=== PATIENT | male | born 1945 | race Caucasian/White ===

== ENCOUNTER 2016-11-02 16:50 | Emergency (ER) | payer MEDICARE ==
[~2016-11-02] VITALS: Ht 175.3 cm; Wt 81.6 kg
[2016-11-02 17:38] LABS: URINE BILIRUBIN - DIPSTICK NEGATIVE (NEG); URINE BLOOD TRACE (NEG)
--- NOTE | 2016-11-02 17:44 | Urgent Treatment Center Report ---
History of Present Issue Date/Time Seen by Provider 11/02/16 1733 Visit Reason Pt arrived:Walked Presenting Problem:PT STATES HIS URINE HAS BEEN DARK YELLOW IN COLOR FOR OVER A WEEK AND HE BELIEVES HE HAS A UTI. STATES BURNING WITH URINATION AT TIMES Location if Accident: Onset of symptoms date/time:/ or onset unknown for:MEDICAL HX UNKNOWN Have you (or family members/close friends) recently traveled outside the [place]? N If Yes, where/when: Have you had exposure to infectious disease within the past month? TB? Other? Specify: Patient state that he noticed that his urine looked dark earlier. States that he has noticed that at times over the last week she noticed that his urine looks dark yellow at ties. State that he thinks he has a kidney infection state that he is not having pain with urination or difficulty starting to urinate just at times has a burning sensation. ALLERGIES Coded Allergies: No Known Allergies (11/02/16) History Medical History General CAD? No Angina: No CO: Yes Hypertension? No Hyperlipidemia? No CHF? No DVT? No PE? No COPD? No Asthma? No Anemia? No GERD? No Gastric ulcers? No GI Bleed? No Hernia? No Thyroid Problems? No Hypothyroidism? No CVA? No Seizures? No Diabetes? No Renal Insuffiency? No UTI? No Stones? No BPH? No GB Disease: No Nephritic Syndrome? No Asplenia? No Hepatitis? No Sickle Cell Disease? No Arthritis? No Migraines? No Cataracts? No Glaucoma? No MRSA? No HIV? No TB? No Anxiety? No Depression? No Cancer? 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 Physical Exam Vital Signs Vital Signs Date Time Temp Pulse Resp B/P Pulse O2 O2 Flow FiO2 Ox Delivery Rate 11/02 1722 98.8 64 16 156/47 98 General Appearance normal appearance, WD/WN, no apparent distress Respiratory Status Yes: trachea midline, chest symmetrical, non tender chest. No: respiratory distress. Cardiovascular normal exam Neurologic alert, weigher production II-XII nml as tested, normal exam, no motor/sensory deficits, oriented x 3 Comments Patient denies urgency or frequency states that he was worried because he thought his urine looked a different color than usual denies cva tenderness Medical Decision Making LABS/Meds/Orders Pt receiving controlled substance in ED? No Results/Orders Laboratory Tests 11/02/16 1726: Urine Color YELLOW, Urine Appearance Clear, Urine pH 5.5, Ur Specific [place] 1.015, Urine Protein NEGATIVE, Urine Ketones NEGATIVE, Urine Blood TRACE H, Urine Nitrate NEGATIVE, Urine Bilirubin NEGATIVE, Urine Urobilinogen 0.2, Ur Leukocyte Esterase NEGATIVE, Urine Glucose NEGATIVE Orders Procedure Date/time Status [facility] URINE DIPSTICK 11/02 172 Complete Progress [facility] Progress Notes Date 11/02/16 Time 1738 Comment Patient educated on importance of staying well hydrated with water, verbalized understanding of education Departure Departure Time of Disposition 1741 Disposition DC Home or Self Care(routine) Clinical Impression Primary Impression: Urinary problem Condition STABLE Referrals NAMRATA METCALF (Family): 2 Days-Call Office if no improvement or worsening of symptoms Additional Instructions Make sure to drink plenty of water throughout the day Follow up this week with your family doctor Return if needed Discharge Counseling Counseled pt/family regarding diagnosis, test results, medications/RX, home care, follow up needs at 1745
--- NOTE | 2016-11-02 17:44 | Urgent Treatment Center Report ---
History of Present Issue Date/Time Seen by Provider 11/02/16 1733 Visit Reason Pt arrived:Walked Presenting Problem:PT STATES HIS URINE HAS BEEN DARK YELLOW IN COLOR FOR OVER A WEEK AND HE BELIEVES HE HAS A UTI. STATES BURNING WITH URINATION AT TIMES Location if Accident: Onset of symptoms date/time:/ or onset unknown for:MEDICAL HX UNKNOWN Have you (or family members/close friends) recently traveled outside the [place]? N If Yes, where/when: Have you had exposure to infectious disease within the past month? TB? Other? Specify: Patient state that he noticed that his urine looked dark earlier. States that he has noticed that at times over the last week she noticed that his urine looks dark yellow at ties. State that he thinks he has a kidney infection state that he is not having pain with urination or difficulty starting to urinate just at times has a burning sensation. ALLERGIES Coded Allergies: No Known Allergies (11/02/16) History Medical History General CAD? No Angina: No NC: Yes Hypertension? No Hyperlipidemia? No CHF? No DVT? No PE? No COPD? No Asthma? No Anemia? No GERD? No Gastric ulcers? No GI Bleed? No Hernia? No Thyroid Problems? No Hypothyroidism? No CVA? No Seizures? No Diabetes? No Renal Insuffiency? No UTI? No Stones? No BPH? No GB Disease: No Nephritic Syndrome? No Asplenia? No Hepatitis? No Sickle Cell Disease? No Arthritis? No Migraines? No Cataracts? No Glaucoma? No MRSA? No HIV? No TB? No Anxiety? No Depression? No Cancer? 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 Physical Exam Vital Signs Vital Signs Date Time Temp Pulse Resp B/P Pulse O2 O2 Flow FiO2 Ox Delivery Rate 11/02 1722 98.8 64 16 156/47 98 General Appearance normal appearance, WD/WN, no apparent distress Respiratory Status Yes: trachea midline, chest symmetrical, non tender chest. No: respiratory distress. 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 No Results/Orders Laboratory Tests 11/02/16 1726: Urine Color YELLOW, Urine Appearance Clear, Urine pH 5.5, Ur Specific [place] 1.015, Urine Protein NEGATIVE, Urine Ketones NEGATIVE, Urine Blood TRACE H, Urine Nitrate NEGATIVE, Urine Bilirubin NEGATIVE, Urine Urobilinogen 0.2, Ur Leukocyte Esterase NEGATIVE, Urine Glucose NEGATIVE Orders Procedure Date/time Status [facility] URINE DIPSTICK 11/02 172 Complete Progress [facility] Progress Notes Date 11/02/16 Time 1738 Comment Patient educated on importance of staying well hydrated with water, verbalized understanding of education Departure Departure Time of Disposition 1741 Disposition DC Home or Self Care(routine) Clinical Impression Primary Impression: Urinary problem Condition STABLE Referrals NAMRATA METCALF (Family): 2 Days-Call Office if no improvement or worsening of symptoms Additional Instructions Make sure to drink plenty of water throughout the day Follow up this week with your family doctor Return if needed Discharge Counseling Counseled pt/family regarding diagnosis, test results, medications/RX, home care, follow up needs at 1746
[2016-11-02 17:47] VITALS: BP 156/47
--- OUTSIDE RECORDS SUMMARY | 2016-11-05 16:59 | External Medical Summary Rpt ---
Author Author KUSUMCECILIO Caitie, [employer] Organization [employer] Address Unknown Phone Unavailable Results Urinalysis macro (dipstick) panel in Urine Observa Value Referen Units Interpr Notes Date tion ce etation Range Appeara Clear CLEAR No No No Nov 02 nce of informa informa informa 2017 Urine tion in tion in tion in 5:26 PM source source source data data data Bilirub NEGATIV NEG No No No Nov 02 in E informa informa informa 2016 [Presen tion in tion in tion in 5:26 PM ce] in source source source Urine data data data by Test strip Erythro TRACE NEG No Abnorma No Nov 02 cytes informa l informa 2016 [Presen tion in tion in 5:26 PM ce] in source source Urine data data Color YELLOW YELLOW No No No Nov 02 of informa informa informa 2017 Urine tion in tion in tion in 5:26 PM source source source data data data Glucose NEG No No No Nov 02 [Mass/vol informati informati informati 2017 5:26 ume] in on in on in on in PM Urine by source source source Test data data data strip Ketones NEGATIV NEG mg/dL No No Nov 02 E informa informa 2016 [Presen tion in tion in 5:26 PM ce] in source source Urine data data by Automat ed test strip pH of 5.0 - 8.5 No Normal No Nov 02 Urine informati informati 2017 5:26 on in on in PM source source data data Protein NEG mg/dL No No Nov 02 [Mass/vol informati informati 2017 5:26 ume] in on in on in PM Urine by source source Automated data data test strip Specific 1.005 - No Normal No Nov 02 gravity 1.030 informati informati 2017 5:26 of Urine on in on in PM source source data data Leukocy NEGATIV NEG No No No Nov 02 te E informa informa informa 2017 esteras tion in tion in tion in 5:26 PM e source source source [Presen data data data ce] in Urine by Automat ed test strip Nitrite NEGATIV NEG No No No Nov 02 E informa informa informa 2016 [Presen tion in tion in tion in 5:26 PM ce] in source source source Urine data data data by Test strip Urobili 0.2 NEG E.U./dL No No Nov 02 nogen informa informa 2016 [Presen tion in ti in 5:26 PM ce] in source source Urine data data by Test strip
--- OUTSIDE RECORDS SUMMARY | 2016-11-05 16:59 | External Medical Summary Rpt ---
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 Name Role Phone [facility] Unavailable Unavailable SERVICES, [facility] SHERLEY BAB, SHERLEY BAB Unavailable Unavailable Purpose Continuity of Care Document - 04-11-2012 through 2016 Problems Code Diagnosis DOS Provider Status 49441 ABDOMINAL 04-11-2012 [facility] 27983 OTHER 04-11-2012 [facility] Results Labs Lab Lab Date Result Refere Interp Status Commen Order Detail nces retati t Range on Urinalysis macro (dipstick) panel in Urine (11-02-2016 17:26) Appeara Clear CLEAR complet nce of 017 ed Urine 17:26 Bilirub NEGATIV NEG complet in 017 E ed [Presen 17:26 ce] in Urine by Test strip Erythro TRACE NEG Abnorma complet cytes 017 l ed [Presen 17:26 ce] in Urine Color YELLOW YELLOW complet of 017 ed Urine 17:26 Ketones NEGATIV NEG complet 017 E ed [Presen 17:26 ce] in Urine by Automat ed test strip Leukocy NEGATIV NEG complet te 017 E ed esteras 17:26 e [Presen ce] in Urine by Automat ed test strip Nitrite NEGATIV NEG complet 017 E ed [Presen 17:26 ce] in Urine by Test strip Urobili 0.2 NEG complet nogen 017 ed [Presen 17:26 ce] in Urine by Test strip Encounters Encounter Start End Date Code Location Performer Type Date EMERGENCY [address] [facility] DE[facility] 3 3 EMERGENCY VISIT SERVICES HIGH SEVERITY& THREAT FUNCJ
--- OUTSIDE RECORDS SUMMARY | 2016-11-05 16:59 | External Medical Summary Rpt ---
Demographics Preferred Language Bolivian Marital Status Unknown Yazdanism Affiliation Unknown Race Unknown Ethnic Group Unknown Author Author , LISE LEZAMA Address Unknown Phone Immunization Unable to retrieve immunization data due to connection failure with Immunization Registry. Please try again later.
--- OUTSIDE RECORDS SUMMARY | 2016-11-05 16:59 | External Medical Summary Rpt ---
Author Author L[facility] Address Unknown Phone [email or web address] Care Team Providers Care Financial Agent Name Role Phone [facility] Unavailable Unavailable SERVICES, [facility] SHERLEY P[facility], SHERLEY PITT Unavailable Unavailable Purpose Continuity of Care Document - 04-11-2012 through 2016 Problems Code Diagnosis DOS Provider Status [id number] ABDOMINAL 04-11-2012 [facility] 61105 OTHER 04-11-2012 [facility] Encounters Encounter Start End Date Code Location Performer Type Date EMERGENCY [address] [facility] DEPT 3 3 EMERGENCY VISIT SERVICES HIGH SEVERITY& THREAT FUNCJ
--- OUTSIDE RECORDS SUMMARY | 2016-11-05 16:59 | External Medical Summary Rpt ---
Author Author , LISE LEZAMA Address Unknown Phone [email or web address] Care Team Providers Care High Heel Builder Name Role Phone [facility] Unavailable Unavailable SERVICES, [facility] SHERLEY BAB, SHERLEY BAB Unavailable Unavailable Purpose Continuity of Care Document - 04-11-2012 through 2016 Problems Code Diagnosis DOS Provider Status [id number] ABDOMINAL 04-11-2012 [facility] 54980 OTHER 04-11-2012 [facility] Results Labs Lab Lab [...] Date Code Location Performer Type Date EMERGENCY [address]0838 [facility] DEPT 3 3 EMERGENCY VISIT SERVICES HIGH SEVERITY& THREAT FUNCJ
--- OUTSIDE RECORDS SUMMARY | 2016-11-05 16:59 | External Medical Summary Rpt ---
Demographics Preferred Language Guamanian Marital Status Unknown Gnosticism Affiliation Unknown Race Unknown Ethnic Group Unknown Author Author , LISE LEZAMA Address Unknown Phone Immunization Unable to retrieve immunization data due to connection failure with Immunization Registry. Please try again later.
--- OUTSIDE RECORDS SUMMARY | 2016-11-05 16:59 | External Medical Summary Rpt ---
Author Author [facility] Address Unknown Phone Care Team Providers Care Road Repairer Name Role Phone [facility] Unavailable Unavailable SERVICES, [facility] SHERLEY PITT, SHERLEY PITT Unavailable Unavailable Purpose Continuity of Care Document - 04-11-2012 through 2016 Problems Code Diagnosis DOS Provider Status 29359 ABDOMINAL 04-11-2012 [facility] 51897 OTHER 04-11-2012 [facility] Encounters Encounter Start End Date Code Location Performer Type Date EMERGENCY 36511 [facility] DEPT 3 3 EMERGENCY VISIT SERVICES HIGH SEVERITY& THREAT FUNCJ
== END 2016-11-02 17:48 | disposition home or self-care (01) ==
LOC: ER 16:50 → UTC 17:09
PROVIDERS: Nurse Practitioner
DX: R82.99 Other abnormal findings in urine (principal)